=== PATIENT | male | born 1990 | race Caucasian/White ===

== ENCOUNTER 2017-05-22 07:47 | Emergency (ER) | payer SELFPAY ==
[~2017-05-22] VITALS: Ht 172.7 cm; Wt 81.0 kg
[2017-05-22 09:11] LABS: PROTHROMBIN TIME 10.7 sec (9.4-11.6)
[2017-05-22 09:14] LABS: BASOPHILS % 0.2 % (0.0-2.0); CHLORIDE 105 mEq/L (98-107); EOSINOPHILS % 1.3 % (0.0-5.0); HEMATOCRIT. 42.3 % (42.0-52.0); HEMOGLOBIN. 14.2 g/dL (14.0-18.0); LYMPHOCYTES % 14.4 % (20.0-50.0); MEAN CORPUSCULAR HEMOGLOBIN 28.9 pg (28.0-32.0); MEAN CORPUSCULAR VOLUME 86.1 fL (80.0-94.0); MEAN PLATELET VOLUME 9.6 fl (7.4-10.4); MONOCYTES % 3.7 % (2.0-8.0); NEUTROPHILS % 80.4 % (40.0-76.0); PLATELET 272 x1000/uL (130-400); RED BLOOD CELL COUNT 4.91 mill/uL (4.7-6.1); RED CELL DISTRIBUTION WIDTH 13.7 % (11.6-14.6)
[2017-05-22 09:20] LABS: TROPONIN I < 0.02 ng/mL (0.00-0.04)
[2017-05-22 13:01] VITALS: BP 102/69
== END 2017-05-22 14:03 | disposition home or self-care (01) ==
LOC: ER 08:01
DX: K80.20 Calculus of gallbladder without cholecystitis without obstruction (principal); R00.1 Bradycardia, unspecified; D72.829 Elevated white blood cell count, unspecified
CPT/HCPCS: 36415; 71045; 76705; 80053; 83690; 83880; 84484; 85025; 85610; 93005; 99285

== ENCOUNTER 2017-06-28 05:58 | Inpatient (IN) | payer SELFPAY ==
[~2017-06-28] VITALS: Ht 172.7 cm; Wt 79.8 kg
[2017-06-28] MEDS ORDERED: SODIUM CHLORIDE 0.9% 1,000 ML IV ONE (06:46)
[2017-06-28] MEDS ORDERED: MORPHINE SULFATE 4 MG/ML CPJ (NOT FOR IM USE) IV STA (06:46)
[2017-06-28] MEDS ORDERED: ONDANSETRON HCL 4MG/2ML VIAL IV STA (06:46)
[2017-06-28 07:10] LABS: CHLORIDE 104 mEq/L (98-107)
[2017-06-28 07:11] LABS: PROTHROMBIN TIME 10.8 sec (9.4-11.6)
[2017-06-28 07:18] LABS: BASOPHILS % 0.2 % (0.0-2.0); EOSINOPHILS % 1.4 % (0.0-5.0); HEMOGLOBIN. 14.4 g/dL (14.0-18.0); LYMPHOCYTES % 20.9 % (20.0-50.0); MEAN CORPUSCULAR HEMOGLOBIN 29.5 pg (28.0-32.0); MEAN CORPUSCULAR VOLUME 85.9 fL (80.0-94.0); MEAN PLATELET VOLUME 9.5 fl (7.4-10.4); MONOCYTES % 4.3 % (2.0-8.0); NEUTROPHILS % 73.2 % (40.0-76.0); PLATELET 267 x1000/uL (130-400); RED BLOOD CELL COUNT 4.89 mill/uL (4.7-6.1); RED CELL DISTRIBUTION WIDTH 13.1 % (11.6-14.6)
[2017-06-28 07:36] LABS: CLARITY URINE CLEAR (CLEAR); COLOR URINE YELLOW (YELLOW); KETONES URINE NEGATIVE (NEGATIVE); LEUKOCYTE ESTERASE URINE NEGATIVE (NEGATIVE); NITRITE URINE NEGATIVE (NEGATIVE); OCCULT BLOOD URINE NEGATIVE (NEGATIVE); PROTEIN URINE NEGATIVE (NEGATIVE)
[2017-06-28] MEDS ORDERED: METRONIDAZOLE 500 MG PREMIX 100 ML IV ONE (08:30)
[2017-06-28] MEDS ORDERED: CEFTRIAXONE 1 G PREMIX 50 ML IV ONE (08:30)
[2017-06-28] MEDS ORDERED: MAGNESIUM/ALUMINUM HYDROXIDE/SIMETHICONE 30ML UDC PO PRN (11:00)
[2017-06-28] MEDS ORDERED: GUAIFENESIN 200MG/10ML SUGAR FREE UDC PO PRN (11:00)
[2017-06-28] MEDS ORDERED: HYDROCODONE/ACETAMINOPHEN 5/325MG TABLET PO PRN (11:00)
[2017-06-28] MEDS ORDERED: HYDROCODONE/ACETAMINOPHEN 10/325MG TABLET PO PRN (11:00)
[2017-06-28] MEDS ORDERED: ONDANSETRON HCL 4MG/2ML VIAL IV PRN ×2 (11:00→17:30)
[2017-06-28] MEDS ORDERED: DOCUSATE SODIUM 100MG CAPSULE PO PRN (11:00)
[2017-06-28] MEDS ORDERED: ACETAMINOPHEN 325MG TABLET PO PRN (11:00)
[2017-06-28] MEDS ORDERED: CLONIDINE 0.1MG TABLET PO PRN (11:00)
[2017-06-28] MEDS ORDERED: LORAZEPAM 0.5MG TABLET PO PRN (11:00)
[2017-06-28] MEDS ORDERED: ACETAMINOPHEN 650MG/20.3ML UDC GT PRN (11:00)
[2017-06-28] MEDS ORDERED: ACETAMINOPHEN 650MG SUPP PR PRN (11:00)
[2017-06-28] MEDS ORDERED: SODIUM CHLORIDE 0.45% 1,000 ML IV ONE (13:00)
[2017-06-28] MEDS ORDERED: MORPHINE SULFATE 4 MG/ML CPJ (NOT FOR IM USE) IV PRN (13:00)
[2017-06-28] MEDS ORDERED: NA PHOS,M-B/NA PHOS,DI-BA ENEMA 118ML PR PRN (16:00)
[2017-06-28] MEDS ORDERED: KETOROLAC 15MG/ML VIAL IV PRN (17:30)
[2017-06-28] MEDS ORDERED: LEVOFLOXACIN 500MG PREMIX 100 ML IV NR (18:03)
[2017-06-28] MEDS ORDERED: METRONIDAZOLE 500 MG PREMIX 100 ML IV NR (18:12)
[2017-06-28 22:50] VITALS: BP 106/70
[2017-06-28 23:14] VITALS: BP 104/70
[2017-06-29 04:00] VITALS: BP 96/50
[2017-06-29] MEDS: METRONIDAZOLE 500 MG PREMIX 100 ML IV SCH ×2 (05:31→13:38)
[2017-06-29 05:55] LABS: BASOPHILS % 0.2 % (0.0-2.0); EOSINOPHILS % 1.7 % (0.0-5.0); HEMATOCRIT. 40.2 % (42.0-52.0); HEMOGLOBIN. 13.8 g/dL (14.0-18.0); LYMPHOCYTES % 24.8 % (20.0-50.0); MEAN CORPUSCULAR HEMOGLOBIN 29.5 pg (28.0-32.0); MEAN CORPUSCULAR VOLUME 85.8 fL (80.0-94.0); MEAN PLATELET VOLUME 9.6 fl (7.4-10.4); MONOCYTES % 3.4 % (2.0-8.0); NEUTROPHILS % 69.9 % (40.0-76.0); PLATELET 278 x1000/uL (130-400); RED BLOOD CELL COUNT 4.68 mill/uL (4.7-6.1); RED CELL DISTRIBUTION WIDTH 13.5 % (11.6-14.6)
[2017-06-29 06:38] LABS: CHLORIDE 106 mEq/L (98-107)
[2017-06-29 08:00] VITALS: BP 98/55
[2017-06-29 12:00] VITALS: BP 103/56
[2017-06-29 16:00] VITALS: BP 111/70
[2017-06-29] MEDS ORDERED: LEVOFLOXACIN 500MG PREMIX 100 ML IV SCH (18:00)
[2017-06-29 20:36] VITALS: BP 115/63
[2017-06-30 00:12] VITALS: BP 96/50
[2017-06-30 04:00] VITALS: BP 104/59
[2017-06-30 06:17] LABS: BASOPHILS % 0.2 % (0.0-2.0); HEMATOCRIT. 42.3 % (42.0-52.0); HEMOGLOBIN. 14.3 g/dL (14.0-18.0); LYMPHOCYTES % 43.5 % (20.0-50.0); MEAN CORPUSCULAR HEMOGLOBIN 29.2 pg (28.0-32.0); MEAN CORPUSCULAR VOLUME 86.6 fL (80.0-94.0); MEAN PLATELET VOLUME 9.7 fl (7.4-10.4); MONOCYTES % 6.2 % (2.0-8.0); NEUTROPHILS % 46.1 % (40.0-76.0); PLATELET 285 x1000/uL (130-400); RED BLOOD CELL COUNT 4.88 mill/uL (4.7-6.1); RED CELL DISTRIBUTION WIDTH 13.6 % (11.6-14.6)
[2017-06-30 08:00] VITALS: BP 96/56
[2017-06-30 09:00] LABS: CHLORIDE 104 mEq/L (98-107)
[2017-06-30 09:08] LABS: PHOSPHORUS 4.3 mg/dL (2.5-4.9)
[2017-06-30 12:00] VITALS: BP 115/71
[2017-06-30 13:40] VITALS: BP 115/71
== END 2017-06-30 14:17 | disposition home or self-care (01) ==
LOC: ER 05:58 → 6EST 08:41 → ENRESERV 20:26
PROVIDERS: ADMIT Internal Medicine; ATTEND Internal Medicine
DX: K80.42 Calculus of bile duct with acute cholecystitis without obstruction (principal); D72.829 Elevated white blood cell count, unspecified
CPT/HCPCS: 36415; 74021; 76705; 78227; 80048; 80053; 80076; 81003; 83605; 83690; 83735; 84100; 85025; 85610; 87040; 96361; 96365; 96366; 96367; 96375; 99285; A9537; J0696; J1956; J2270; J2405; J3490; J7030; J7050